=== PATIENT | female | born 1955 | race African-American/Black ===

== ENCOUNTER 2017-02-09 12:02 | Inpatient (IN) | payer OTHER ==
[~2017-02-09] VITALS: Ht 177.8 cm; Wt 151.5 kg
[2017-02-09 13:52] LABS: Basophils # (auto) 0 uL; Basophils % (auto) 0.4 % (0.0-2.0); CONDITION Y; DEFINITIVE SEE PRINTOUT; Eosinophils # (auto) 0.1 uL; Eosinophils % (auto) 1.2 % (0.0-7.0); Hematocrit 38.9 % (36.0-46.0); Hemoglobin 12.5 g/dL (12.2-16.2); Lymphocytes # (auto) 1.5 uL; Mean Corpuscular Hemoglobin 25.5 pg (28.0-32.0); Mean Corpuscular Volume 79.5 fL (80.0-100.0); Mean Platelet Volume 7.9 fL (7.4-10.4); Monocytes # (auto) 0.7 uL; Monocytes % (auto) 6.9 % (0.0-12.0); Neutrophils # (auto) 7.5 uL; Neutrophils % (auto) 76.5 % (37.0-80.0); Platelet Count (auto) 320 10^3/uL (140-450); Red Cell Distribution Width 15.1 % (11.6-16.0); White Blood Cell 9.8 10^3/uL (4.4-10.8)
[2017-02-09 14:09] LABS: INR 0.96 (0.9-1.15); Partial Thromboplastin Time 26.8 sec (22.64-33.71); Prothrombin Time 10.5 sec (9.37-12.3)
[2017-02-09 14:19] LABS: Albumin 3.5 g/dL (3.4-5.0); Alkaline Phosphatase 134 U/L (45-117); Anion Gap 7 (5-15); Aspartate Aminotransferase 19 U/L (15-37); BUN/Creatinine Ratio 17.3; Bilirubin, Total 0.3 mg/dL (0.2-1.0); Blood Urea Nitrogen 13 mg/dL (7-18); Calcium 8.9 mg/dL (8.5-10.1); Carbon Dioxide 24 mmol/L (21-32); Chloride 105 mmol/L (98-107); GFR African American 101 mL/min; GFR Non-African American 83 mL/min; Glucose 182 mg/dL (74-106); Magnesium 2.5 mg/dL (1.6-2.6); Potassium 4.1 mmol/L (3.5-5.1); Sodium 136 mmol/L (136-145); Total Protein 7.9 g/dL (6.4-8.2)
[2017-02-09 14:55] LABS: Urine Bilirubin Negative (Negative); Urine Blood Negative /uL (Negative); Urine Color Yellow (Yellow); Urine Glucose 1+ mg/dL (Normal); Urine Ketone Negative (Negative); Urine Mucus FEW (None Seen); Urine Nitrite Negative (Negative); Urine RBC <1 /hpf (0 - 4); Urine Squamous Epithelial Cell FEW /hpf (<5); Urine Urobilinogen Normal (Negative)
[2017-02-09] MEDS ORDERED: ASPirin 81 mg TAB PO ONE (15:15)
[2017-02-09] MEDS ORDERED: MORPHINE SULF INJ 2 MG/ML SYRINGE 1ML IV PRN ×2 (15:15)
[2017-02-09] MEDS ORDERED: LORazepam 0.5 MG TAB PO PRN (15:15)
[2017-02-09] MEDS ORDERED: HYDROcodone-ACET 5/325MG TAB PO PRN (15:15)
[2017-02-09] MEDS ORDERED: PROMETHAZINE HCL 25 MG/ML 1ML IV PRN (15:15)
[2017-02-09] MEDS ORDERED: TEMAZEPAM 15 MG CAP PO PRN (15:15)
[2017-02-09] MEDS ORDERED: LACTULOSE 20Gm/30ML SOLN PO PRN (15:15)
[2017-02-09] MEDS ORDERED: DEXTROSE (50%) 50ML SYRG IV PRN (15:15)
[2017-02-09] MEDS ORDERED: ACETAMINOPHEN 500 MG TAB PO PRN (15:15)
[2017-02-09] MEDS ORDERED: NITROGLYCERIN 0.4 MG SL TAB SL PRN (15:15)
[2017-02-09] MEDS ORDERED: LABETALOL HCL 5 MG/ML ML 20ML VIAL IV PRN (15:30)
[2017-02-09] MEDS ORDERED: amLODIPine BESYLATE 5 MG TAB PO ONE (15:30)
[2017-02-09] MEDS ORDERED: ENOXAPARIN SOD 40 MG/0.4 ML SYRINGE SC SCH (15:37)
[2017-02-09] MEDS: SODIUM CHLORIDE 0.9% 1,000 ML IV SCH (15:46)
[2017-02-09] MEDS: PANTOPRAZOLE 40 MG TAB PO SCH (15:49)
[2017-02-09 15:51] LABS: Temperature: 23.3 C (20.0-25.0)
[2017-02-09] MEDS: LABETALOL HCL 5 MG/ML ML 20ML VIAL IV PRN ×2 (17:00→20:50)
[2017-02-09 17:30] VITALS: BP 174/100
[2017-02-09] MEDS: ACCU-CHEK COMFORT CURVE STRIP VI SCH ×2 (18:37→21:26)
[2017-02-09] MEDS: InsuLIN REG 1unit/0.01ml Soln (100units/ml) SC SCH ×2 (18:38→21:26)
[2017-02-09] MEDS ORDERED: LORazepam 2MG/ML-1ML VIAL IV PRN (19:30)
[2017-02-09 20:00] VITALS: BP 172/80
[2017-02-09] MEDS: ATORVASTATIN 20 MG TAB PO SCH (21:15)
[2017-02-09] MEDS: ENOXAPARIN SOD 40 MG/0.4 ML SYRINGE SC SCH (21:18)
[2017-02-09 21:49] VITALS: BP 172/80
[2017-02-10] VITALS (7 sets, daily range): BP systolic 126–180; BP diastolic 63–96
[2017-02-10] MEDS: SODIUM CHLORIDE 0.9% 1,000 ML IV SCH ×2 (03:44→16:14)
[2017-02-10 05:10] LABS: Basophils # (auto) 0 uL; Basophils % (auto) 0.2 % (0.0-2.0); CONDITION Y; DEFINITIVE SEE PRINTOUT; Eosinophils # (auto) 0.1 uL; Eosinophils % (auto) 0.9 % (0.0-7.0); Hematocrit 37.7 % (36.0-46.0); Hemoglobin 12.1 g/dL (12.2-16.2); Lymphocytes # (auto) 1.5 uL; Lymphocytes % (auto) 17.7 % (10.0-50.0); Mean Corpuscular Hemoglobin 25.4 pg (28.0-32.0); Mean Corpuscular Volume 79.4 fL (80.0-100.0); Mean Platelet Volume 7.8 fL (7.4-10.4); Monocytes # (auto) 0.5 uL; Monocytes % (auto) 6.5 % (0.0-12.0); Neutrophils # (auto) 6.2 uL; Neutrophils % (auto) 74.7 % (37.0-80.0); Platelet Count (auto) 325 10^3/uL (140-450); Red Cell Distribution Width 15.7 % (11.6-16.0); White Blood Cell 8.3 10^3/uL (4.4-10.8)
[2017-02-10] MEDS: ACCU-CHEK COMFORT CURVE STRIP VI SCH ×4 (05:35→22:07)
[2017-02-10] MEDS: InsuLIN REG 1unit/0.01ml Soln (100units/ml) SC SCH ×4 (05:36→22:07)
[2017-02-10] MEDS ORDERED: METF-370 PO (06:12)
[2017-02-10] MEDS ORDERED: ERGO1CAP6 PO (06:12)
[2017-02-10] MEDS ORDERED: AMLO5TAB2 PO (06:12)
[2017-02-10] MEDS ORDERED: SITA100T7 PO (06:12)
[2017-02-10] MEDS ORDERED: LOSA25TA9 PO (06:12)
[2017-02-10 06:22] LABS: Albumin 3.2 g/dL (3.4-5.0); BUN/Creatinine Ratio 12.5; Calcium 8.6 mg/dL (8.5-10.1); Potassium 4.1 mmol/L (3.5-5.1)
[2017-02-10 06:24] LABS: Bilirubin, Total 0.3 mg/dL (0.2-1.0); Total Protein 7.4 g/dL (6.4-8.2)
[2017-02-10] MEDS: LABETALOL HCL 5 MG/ML ML 20ML VIAL IV PRN ×3 (08:20→21:56)
[2017-02-10] MEDS: ASPirin 81 mg TAB PO SCH (09:33)
[2017-02-10] MEDS: PANTOPRAZOLE 40 MG TAB PO SCH (09:34)
[2017-02-10] MEDS: ENOXAPARIN SOD 40 MG/0.4 ML SYRINGE SC SCH ×2 (09:34→22:06)
[2017-02-10] MEDS ORDERED: amLODIPine BESYLATE 5 MG TAB PO SCH (10:00)
[2017-02-10] MEDS: ATORVASTATIN 20 MG TAB PO SCH (22:06)
[2017-02-11] MEDS ORDERED: ALLO100T PO (03:22)
[2017-02-11] MEDS: SODIUM CHLORIDE 0.9% 1,000 ML IV SCH ×2 (04:29→17:14)
[2017-02-11 05:00] VITALS: BP 166/74
[2017-02-11] MEDS: InsuLIN REG 1unit/0.01ml Soln (100units/ml) SC SCH ×3 (06:14→17:00)
[2017-02-11] MEDS: ACCU-CHEK COMFORT CURVE STRIP VI SCH ×3 (06:14→17:00)
[2017-02-11] MEDS: LABETALOL HCL 5 MG/ML ML 20ML VIAL IV PRN ×2 (06:15→14:05)
[2017-02-11 09:00] VITALS: BP 170/78
[2017-02-11] MEDS: ASPirin 81 mg TAB PO SCH (09:56)
[2017-02-11] MEDS: ENOXAPARIN SOD 40 MG/0.4 ML SYRINGE SC SCH (09:57)
[2017-02-11] MEDS: PANTOPRAZOLE 40 MG TAB PO SCH (09:57)
[2017-02-11] MEDS ORDERED: LOSARTAN POTASSIUM 50 MG TAB PO SCH (10:00)
[2017-02-11] MEDS ORDERED: NIFEdipine ER 30 MG TAB PO SCH (10:00)
[2017-02-11] MEDS ORDERED: LOSARTAN POTASSIUM 25 MG TAB PO SCH (10:00)
[2017-02-11] MEDS ORDERED: amLODIPine BESYLATE 5 MG TAB PO SCH (10:00)
[2017-02-11] MEDS ORDERED: cloNIDine HCL 0.1 MG TAB PO SCH (14:59)
[2017-02-11 17:00] VITALS: BP 136/88
[2017-02-11 18:37] VITALS: BP 133/88
== END 2017-02-11 21:38 | disposition home or self-care (01) | DRG 65 ==
LOC: ER 12:02 → TELE 12:03 → DOU IN ICU 17:20 → TELE-CENTR 02-10 22:54
PROVIDERS: ADMIT Internal Medicine; ATTEND Internal Medicine
DX: I63.9 Cerebral infarction, unspecified (principal); Z68.42 Body mass index [BMI] 45.0-49.9, adult; E88.81 Metabolic syndrome and other insulin resistance; I16.1 Hypertensive emergency; G81.91 Hemiplegia, unspecified affecting right dominant side; E66.01 Morbid (severe) obesity due to excess calories; I10 Essential (primary) hypertension; E11.9 Type 2 diabetes mellitus without complications; G47.00 Insomnia, unspecified; G47.10 Hypersomnia, unspecified; M10.9 Gout, unspecified; I65.21 Occlusion and stenosis of right carotid artery; K59.00 Constipation, unspecified; F41.9 Anxiety disorder, unspecified; I70.8 Atherosclerosis of other arteries; Z82.49 Family history of ischemic heart disease and other diseases of the circulatory system; Z83.3 Family history of diabetes mellitus; Z86.73 Personal history of transient ischemic attack (TIA), and cerebral infarction without residual deficits; Z90.710 Acquired absence of both cervix and uterus; Z79.899 Other long term (current) drug therapy; Z87.891 Personal history of nicotine dependence
CPT/HCPCS: 36415; 70450; 71010; 80053; 80061; 80307; 81001; 82550; 82607; 82746; 82962; 83036; 83605; 83735; 84443; 84484; 85025; 85610; 85652; 85730; 86141; 87040; 87081; 93005; 93306; 93886; 94660; 96360; 97163; J1815

== ENCOUNTER 2017-02-15 19:37 | Inpatient (IN) | payer OTHER ==
[~2017-02-15] VITALS: Ht 177.8 cm; Wt 146.0 kg
[~2017-02-15 19:37] MED LIST: ALLO100T PO; AMLO5TAB2 PO; ERGO1CAP6 PO; LOSA25TA9 PO; METF-370 PO; SITA100T7 PO
[2017-02-15] MEDS ORDERED: ASPirin 81 mg TAB PO ONE (21:15)
[2017-02-15 21:41] LABS: Basophils # (auto) 0 uL; Basophils % (auto) 0.5 % (0.0-2.0); CONDITION Y; DEFINITIVE SEE PRINTOUT; Eosinophils # (auto) 0.1 uL; Eosinophils % (auto) 1.5 % (0.0-7.0); Hematocrit 38.4 % (36.0-46.0); Hemoglobin 12.4 g/dL (12.2-16.2); Lymphocytes # (auto) 1.5 uL; Lymphocytes % (auto) 18.3 % (10.0-50.0); Mean Corpuscular Hemoglobin 25.6 pg (28.0-32.0); Mean Corpuscular Hgb Conc. 32.3 g/dL (32.0-36.0); Mean Corpuscular Volume 79.4 fL (80.0-100.0); Mean Platelet Volume 7.6 fL (7.4-10.4); Monocytes # (auto) 0.6 uL; Monocytes % (auto) 7.7 % (0.0-12.0); Neutrophils # (auto) 5.9 uL; Platelet Count (auto) 357 10^3/uL (140-450); Red Cell Distribution Width 15.3 % (11.6-16.0); White Blood Cell 8.3 10^3/uL (4.4-10.8)
[2017-02-15 22:00] LABS: Albumin 3.6 g/dL (3.4-5.0); Anion Gap 10 (5-15); Aspartate Aminotransferase 19 U/L (15-37); BUN/Creatinine Ratio 18.8; Blood Urea Nitrogen 16 mg/dL (7-18); Calcium 9.1 mg/dL (8.5-10.1); Carbon Dioxide 24 mmol/L (21-32); Chloride 108 mmol/L (98-107); GFR African American 87 mL/min; GFR Non-African American 72 mL/min; Glucose 148 mg/dL (74-106); Magnesium 2.4 mg/dL (1.6-2.6); Potassium 4.1 mmol/L (3.5-5.1); Sodium 142 mmol/L (136-145)
[2017-02-15 22:05] LABS: Alkaline Phosphatase 117 U/L (45-117); Bilirubin, Total 0.2 mg/dL (0.2-1.0); Total Protein 7.7 g/dL (6.4-8.2)
[2017-02-15 22:13] LABS: B-Type Natriuretic Peptide 3.34 pg/mL (0-100)
[2017-02-15 22:21] LABS: Temperature: 22.4 C (20.0-25.0)
[2017-02-15 22:27] LABS: INR 0.98 (0.9-1.15); Partial Thromboplastin Time 27.1 sec (22.64-33.71); Prothrombin Time 10.7 sec (9.37-12.3)
[2017-02-15] MEDS ORDERED: ONDANSETRON HCL 4 MG/2 ML VIAL IV ONE (22:30)
[2017-02-15] MEDS ORDERED: MORPHINE SULFATE 4 MG/ML SYRG IV ONE (22:30)
[2017-02-16] VITALS (8 sets, daily range): BP systolic 146–168; BP diastolic 69–88
[2017-02-16] MEDS ORDERED: NITROGLYCERIN 0.4 MG SL TAB SL PRN (01:00)
[2017-02-16] MEDS ORDERED: ONDANSETRON HCL 4 MG/2 ML VIAL IV PRN (01:00)
[2017-02-16] MEDS ORDERED: HYDROcodone-ACET 5/325MG TAB PO PRN (01:00)
[2017-02-16] MEDS ORDERED: LORazepam 0.5 MG TAB PO PRN (01:00)
[2017-02-16] MEDS ORDERED: DEXTROSE (50%) 50ML SYRG IV PRN (01:00)
[2017-02-16] MEDS ORDERED: MORPHINE SULF INJ 2 MG/ML SYRINGE 1ML IV PRN ×2 (01:00)
[2017-02-16] MEDS ORDERED: METOPROLOL TARTRATE 25 MG TAB PO ONE (01:45)
[2017-02-16 02:41] LABS: Cholesterol 137 mg/dL (< 200); HDL Cholesterol 46 mg/dL (40-59); LDL Cholesterol 94 mg/dL (< 100); Triglycerides 97 mg/dL (< 150)
[2017-02-16] MEDS ORDERED: CLOP75TA41 PO (05:52)
[2017-02-16] MEDS ORDERED: LOSA50TA6 PO (05:53)
[2017-02-16] MEDS ORDERED: CLON0.1T PO (05:54)
[2017-02-16] MEDS ORDERED: ATOR20TA50 PO (05:54)
[2017-02-16] MEDS: ACCU-CHEK COMFORT CURVE STRIP VI SCH ×4 (06:52→22:11)
[2017-02-16] MEDS: InsuLIN REG 1unit/0.01ml Soln (100units/ml) SC SCH ×4 (06:59→22:11)
[2017-02-16 07:48] LABS: Basophils # (auto) 0 uL; Basophils % (auto) 0.3 % (0.0-2.0); CONDITION Y; DEFINITIVE SEE PRINTOUT; Eosinophils # (auto) 0.1 uL; Eosinophils % (auto) 1.5 % (0.0-7.0); Hematocrit 37.3 % (36.0-46.0); Hemoglobin 12.1 g/dL (12.2-16.2); Lymphocytes # (auto) 1.6 uL; Lymphocytes % (auto) 21.2 % (10.0-50.0); Mean Corpuscular Hemoglobin 25.5 pg (28.0-32.0); Mean Corpuscular Hgb Conc. 32.3 g/dL (32.0-36.0); Mean Corpuscular Volume 78.9 fL (80.0-100.0); Mean Platelet Volume 7.8 fL (7.4-10.4); Monocytes # (auto) 0.5 uL; Neutrophils # (auto) 5.3 uL; Platelet Count (auto) 336 10^3/uL (140-450); Red Cell Distribution Width 15.1 % (11.6-16.0); White Blood Cell 7.6 10^3/uL (4.4-10.8)
[2017-02-16 08:09] LABS: Anion Gap 9 (5-15); BUN/Creatinine Ratio 16.3; Blood Urea Nitrogen 15 mg/dL (7-18); Calcium 8.6 mg/dL (8.5-10.1); Carbon Dioxide 24 mmol/L (21-32); Chloride 110 mmol/L (98-107); GFR African American 80 mL/min; GFR Non-African American 66 mL/min; Glucose 201 mg/dL (74-106); Potassium 3.8 mmol/L (3.5-5.1); Sodium 143 mmol/L (136-145)
[2017-02-16] MEDS ORDERED: NITROGLYCERIN 0.4 MG SL TAB SL ONE (10:00)
[2017-02-16] MEDS: CLOPIDOGREL BISULFATE 75 MG TAB PO SCH (10:19)
[2017-02-16] MEDS: ALLOPURINOL 100 MG TAB PO SCH (10:19)
[2017-02-16] MEDS: amLODIPine BESYLATE 5 MG TAB PO SCH (10:20)
[2017-02-16] MEDS: LOSARTAN POTASSIUM 25 MG TAB PO SCH (10:20)
[2017-02-16] MEDS: ACETAMINOPHEN 500 MG TAB PO PRN (10:30)
[2017-02-16] MEDS: SODIUM CHLORIDE 0.9% 1,000 ML IV SCH (15:00)
[2017-02-16] MEDS ORDERED: ATORVASTATIN 20 MG TAB PO SCH (22:00)
[2017-02-17] MEDS: SODIUM CHLORIDE 0.9% 1,000 ML IV SCH ×2 (02:19→11:00)
[2017-02-17] MEDS: ACETAMINOPHEN 500 MG TAB PO PRN ×2 (04:56→09:17)
[2017-02-17 05:31] LABS: Basophils # (auto) 0 uL; Basophils % (auto) 0.5 % (0.0-2.0); CONDITION Y; DEFINITIVE SEE PRINTOUT; Eosinophils # (auto) 0.1 uL; Eosinophils % (auto) 1.3 % (0.0-7.0); Hematocrit 35.4 % (36.0-46.0); Hemoglobin 11.3 g/dL (12.2-16.2); Lymphocytes # (auto) 1.4 uL; Lymphocytes % (auto) 19.4 % (10.0-50.0); Mean Corpuscular Hemoglobin 25.5 pg (28.0-32.0); Mean Corpuscular Volume 79.8 fL (80.0-100.0); Mean Platelet Volume 7.6 fL (7.4-10.4); Monocytes # (auto) 0.6 uL; Neutrophils # (auto) 4.9 uL; Neutrophils % (auto) 69.8 % (37.0-80.0); Platelet Count (auto) 303 10^3/uL (140-450); Red Cell Distribution Width 15.5 % (11.6-16.0)
[2017-02-17 05:49] VITALS: BP 166/84
[2017-02-17 05:57] LABS: Potassium 3.8 mmol/L (3.5-5.1)
[2017-02-17 06:06] LABS: BUN/Creatinine Ratio 16.7; Calcium 8.3 mg/dL (8.5-10.1)
[2017-02-17] MEDS: ACCU-CHEK COMFORT CURVE STRIP VI SCH ×2 (06:21→11:30)
[2017-02-17] MEDS: InsuLIN REG 1unit/0.01ml Soln (100units/ml) SC SCH ×2 (06:22→11:30)
[2017-02-17 08:00] VITALS: BP 169/102
[2017-02-17] MEDS: CLOPIDOGREL BISULFATE 75 MG TAB PO SCH (09:16)
[2017-02-17] MEDS: ALLOPURINOL 100 MG TAB PO SCH (09:16)
[2017-02-17] MEDS: amLODIPine BESYLATE 5 MG TAB PO SCH (09:16)
[2017-02-17] MEDS: LOSARTAN POTASSIUM 25 MG TAB PO SCH (09:17)
[2017-02-17 09:39] VITALS: BP 169/89
== END 2017-02-17 12:04 | disposition home or self-care (01) | DRG 558 ==
LOC: EDBD 19:37 → ER 19:46 → TELE 19:47 → TELE-CENTR 02-16 02:55
PROVIDERS: ADMIT Nurse Practitioner Family; ATTEND Internal Medicine
DX: M62.82 Rhabdomyolysis (principal); Z68.42 Body mass index [BMI] 45.0-49.9, adult; I10 Essential (primary) hypertension; R07.89 Other chest pain; I25.10 Atherosclerotic heart disease of native coronary artery without angina pectoris; E11.9 Type 2 diabetes mellitus without complications; E78.5 Hyperlipidemia, unspecified; I25.9 Chronic ischemic heart disease, unspecified; M10.9 Gout, unspecified; E66.01 Morbid (severe) obesity due to excess calories; Z79.84 Long term (current) use of oral hypoglycemic drugs; Z86.73 Personal history of transient ischemic attack (TIA), and cerebral infarction without residual deficits; Z83.3 Family history of diabetes mellitus; Z87.891 Personal history of nicotine dependence
CPT/HCPCS: 36415; 71010; 80048; 80053; 80061; 82550; 82962; 83036; 83735; 83880; 84443; 84484; 85025; 85610; 85652; 85730; 86141; 94761; J1815

== ENCOUNTER 2022-06-30 10:51 | Emergency (ER) | payer OTHER ==
[~2022-06-30] VITALS: Ht 177.8 cm; Wt 131.6 kg
[~2022-06-30 10:51] MED LIST changes: -AMLO5TAB2 PO; +ATOR20TA50 PO; +CLON0.1T PO; +CLOP75TA70 PO; -ERGO1CAP6 PO; +LOSA-69 PO; -LOSA25TA9 PO; -SITA100T7 PO
[2022-06-30 11:35] VITALS: BP 165/71
[2022-06-30 12:00] LABS: Urine WBC None Seen /hpf (0 - 5)
[2022-06-30 12:31] LABS: Urine Bacteria NONE SEEN /hpf (None Seen); Urine Blood Negative /uL (Negative); Urine Specific Gravity 1.018 (1.001-1.035)
[2022-06-30] MEDS ORDERED: TRAM-297 PO (13:34)
== END 2022-06-30 13:44 | disposition home or self-care (01) ==
LOC: ER 10:51
DX: M51.06 Intervertebral disc disorders with myelopathy, lumbar region (principal); M51.16 Intervertebral disc disorders with radiculopathy, lumbar region; E11.9 Type 2 diabetes mellitus without complications; I10 Essential (primary) hypertension; Z90.710 Acquired absence of both cervix and uterus; Z86.73 Personal history of transient ischemic attack (TIA), and cerebral infarction without residual deficits
CPT/HCPCS: 72100; 81001; 93971